=== PATIENT | male | born 2000 | race Caucasian/White ===

== ENCOUNTER 2023-11-24 09:11 | Outpatient (CLI) | payer BC, SELFPAY | END 2023-11-24 09:12 | disposition home or self-care (01) | PROVIDERS: PCP Family Medicine; Visit Provider Family Medicine | DX: Z00.00 Encounter for general adult medical examination without abnormal findings (principal); K52.9 Noninfective gastroenteritis and colitis, unspecified; Z13.6 Encounter for screening for cardiovascular disorders | CPT/HCPCS: 80053; 80061; 83516; 86140 ==

== ENCOUNTER 2023-12-02 06:00 | Outpatient (CLI) | payer BC, SELFPAY | END 2023-12-02 06:01 | disposition home or self-care (01) | LOC: NFLDREF 12-22 04:59 | PROVIDERS: PCP Family Medicine; Referring Provider Family Medicine; Visit Provider Family Medicine | DX: K52.9 Noninfective gastroenteritis and colitis, unspecified (principal) | CPT/HCPCS: 87329; 87493 ==